=== PATIENT | female | born 1985 | race African-American/Black ===

== ENCOUNTER 2018-04-24 12:05 | Emergency (ER) | payer MEDICAID ==
[~2018-04-24] VITALS: Ht 167.6 cm; Wt 58.1 kg
[2018-04-24 12:15] VITALS: BP 116/72
[2018-04-24] MEDS ORDERED: ONDANSETRON ODT 4 MG TAB PO ONE (14:15)
[2018-04-24] MEDS ORDERED: methylPREDNISolone SOD SUCC 125 MG/2 ML VL IM ONE (14:15)
== END 2018-04-24 14:50 | disposition home or self-care (01) ==
LOC: ER 12:05
DX: T78.1XXA Other adverse food reactions, not elsewhere classified, initial encounter (principal); R11.2 Nausea with vomiting, unspecified; R07.89 Other chest pain; R22.9 Localized swelling, mass and lump, unspecified; X58.XXXA Exposure to other specified factors, initial encounter
CPT/HCPCS: 96372; 99283; J2930; Q0162